=== PATIENT | female | born 1955 ===

== ENCOUNTER 2023-01-18 12:00 | Outpatient (RCR) | payer MEDICARE, SELFPAY ==
[2023-01-10] MEDS: Normal Saline Flush 10 ML SYR IVP (08:30)
[2023-01-10 08:50] LABS: Absolute Eosinophil Count 0.11 10^3/uL (0.0-0.7); HCT 35.4 % (36.0-46.0); HGB 12.2 g/dL (11.2-15.7); MCH 32.2 pg (27.0-33.0); MCHC 34.5 % (32.0-36.0); MCV 93 fL (80-95); MPV 10.5 fL (8.0-11.0); RBC 3.79 10^6/uL (3.93-5.22); RDW 11.3 % (11.7-14.6); RDW-SD 38.6 fL
[2023-01-10 09:07] LABS: ALT 31 U/L (14-59); AST 15 U/L (15-37); Albumin 2.7 g/dL (3.4-5.0); Alkaline Phosphatase 94 U/L (46-116); Anion Gap 3.4 mmol/L (3-11); BUN 21 mg/dL (7-18); Bilirubin, Total 0.3 mg/dL (0.2-1.0); CO2 37.6 mmol/L (21.0-32.0); CREATININE 0.7 mg/dL (0.55-1.02); Calcium 8.7 mg/dL (8.5-10.1); Chloride 95 mmol/L (98-107); Estimated GFR 93.56 (mL/min/1.73m2); Glucose 144 mg/dL (74-106); Magnesium 1.6 mg/dL (1.8-2.4); Potassium 3.1 mmol/L (3.5-5.1); Sodium 136 mmol/L (136-145); Total Protein 6.3 g/dL (6.4-8.2)
[2023-01-10 09:38] LABS: Absolute Basophil Count 0.02 10^3/uL (0.0-0.2); Absolute Lymphocyte Count 0.93 10^3/uL (1.2-3.4); Absolute Monocyte Count 0.09 10^3/uL (0.1-0.8); Atypical Lymphocytes % 3
[2023-01-10 09:39] LABS: Diff Comment Manual Differential; Platelet Count 157 10^3/uL (130-400)
[2023-01-10 09:44] LABS: Absolute Neutrophil Count 0.36 10^3/uL (1.2-6.7)
[2023-01-18] MEDS: Normal Saline Flush 10 ML SYR IVP (12:02)
[2023-01-18 12:17] LABS: Abs Immature Grans 0.28 10^3/uL (0.0-0.06); Absolute Basophil Count 0.08 10^3/uL (0.0-0.2); Absolute Eosinophil Count 0.02 10^3/uL (0.0-0.7); Absolute Lymphocyte Count 1.13 10^3/uL (1.2-3.4); Absolute Monocyte Count 0.89 10^3/uL (0.1-0.8); Absolute Neutrophil Count 9.62 10^3/uL (1.2-6.7); Basophils % 0.7; Eosinophils % 0.2; HCT 32.5 % (36.0-46.0); HGB 10.9 g/dL (11.2-15.7); Immature Grans % 2.3; Lymphocytes % 9.4; MCH 32.3 pg (27.0-33.0); MCHC 33.5 % (32.0-36.0); MCV 96 fL (80-95); MPV 9.5 fL (8.0-11.0); Monocytes % 7.4; Platelet Count 361 10^3/uL (130-400); RBC 3.37 10^6/uL (3.93-5.22); RDW 12.3 % (11.7-14.6); WBC 12.02 10^3/uL (4.4-10.8)
[2023-01-18 12:35] LABS: ALT 30 U/L (14-59); AST 14 U/L (15-37); Albumin 2.6 g/dL (3.4-5.0); Alkaline Phosphatase 104 U/L (46-116); BUN 16 mg/dL (7-18); Bilirubin, Total 0.2 mg/dL (0.2-1.0); CREATININE 0.7 mg/dL (0.55-1.02); Calcium 8.8 mg/dL (8.5-10.1); Chloride 100 mmol/L (98-107); Estimated GFR 93.56 (mL/min/1.73m2); Glucose 182 mg/dL (74-106); Magnesium 1.6 mg/dL (1.8-2.4); Potassium 3.6 mmol/L (3.5-5.1); Sodium 138 mmol/L (136-145); Total Protein 6.4 g/dL (6.4-8.2)
== END 2023-01-18 23:59 | disposition home or self-care (01) ==
LOC: INF 12:00
PROVIDERS: PCP Registered Nurse Critical Care Medicine; Visit Provider Internal Medicine Hematology & Oncology
DX: C02.3 Malignant neoplasm of anterior two-thirds of tongue, part unspecified (principal); Z45.2 Encounter for adjustment and management of vascular access device
CPT/HCPCS: 36591; 80053; 83735; 85025